=== PATIENT | female | born 1965 | race Hispanic/Latino ===

== ENCOUNTER → 2022-08-02 | Outpatient (CLI) | payer OTHER | LOC: MAMMO 12:59 | PROVIDERS: ATTEND Internal Medicine | DX: N64.59 Other signs and symptoms in breast (principal) | CPT/HCPCS: 77066 ==

== ENCOUNTER → 2023-12-19 | Outpatient (REF) | payer OTHER ==
[~2023-12-19] MED LIST: PANTOPRAZOLE SO40 MG PO; TRAZODONE HCL50 MG PO
== END ==
LOC: MAMMO 13:53
PROVIDERS: ATTEND Internal Medicine
DX: Z12.31 Encounter for screening mammogram for malignant neoplasm of breast (principal); M81.0 Age-related osteoporosis without current pathological fracture
CPT/HCPCS: 77067; 77080